=== PATIENT | female | born 1940 | race Caucasian/White ===

== ENCOUNTER 2025-04-26 13:14 | Outpatient (CLI) | payer MEDICARE ==
[~2025-04-26] VITALS: Ht 165.1 cm; Wt 51.0 kg
[~2025-04-26 13:14] MED LIST: ALBUTEROL SULFATE 2.5 MG/0.5 ML INH CONCENTRATE NEB SOLN INH PRN; EPINEPHrine INJ 1 MG/ML 1ML AMP IM PRN; diphenhydrAMINE 50 MG/ML VIAL IV PRN
[2025-04-26 13:43] VITALS: BP 126/88; O2SAT 95
[2025-04-26] MEDS: ACETAMINOPHEN 650 MG PO ONE (14:00)
[2025-04-26] MEDS: diphenhydrAMINE 50 MG/ML VIAL IV ONE (14:00)
[2025-04-26] MEDS: VEDOLIZUMAB 300 MG in NS 250 ML IV ONE (14:30)
== END 2025-04-26 15:25 | disposition home or self-care (01) ==
LOC: M INFU 13:14
PROVIDERS: ATTEND Internal Medicine
DX: K50.80 Crohn's disease of both small and large intestine without complications (principal); Z88.8 Allergy status to other drugs, medicaments and biological substances
CPT/HCPCS: 96413; J3380